=== PATIENT | female | born 2005 | race Asian ===

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

== ENCOUNTER 2025-04-27 11:53 | Outpatient (CLI) | payer OTHER, SELFPAY ==
--- NOTE | ~2025-04-27 | XR_ITS ---
AP view of the pelvis Clinical history: Pain Findings: No acute fracture or dislocation is seen. Osseous alignment is anatomic. Bilateral hip and SI joint spaces are preserved. Soft tissues are unremarkable. Impression: No significant abnormality is seen. Reviewed, dictated and finalized at location M. Impression: No significant abnormality is seen.
--- NOTE | ~2025-04-27 | XR_ITS ---
Lumbosacral Spine: AP and lateral views Clinical History: Pain Findings: The normal lordotic curve is maintained. The vertebral bodies and posterior elements are i ntact. The intervertebral disc spaces are preserved. The sacroiliac joints are normally outlined. Impression: No significant abnormality. Reviewed, dictated and finalized at [facility]. Impression: No significant abnormality.
== END 2025-04-27 11:54 | disposition home or self-care (01) ==
PROVIDERS: PCP Chiropractor; Visit Provider Chiropractor
DX: M54.59 Other low back pain (principal); R10.2 Pelvic and perineal pain
CPT/HCPCS: 72100; 72170